=== PATIENT | male | born 1945 | race Caucasian/White ===

== ENCOUNTER → 2017-06-06 | Outpatient (CLI) | payer OTHER ==
[2016-01-12 20:50] VITALS: BP 117/76
[2017-06-06 13:50] LABS: GIARDIA LAMBLIA ANTIGEN NEGATIVE (NEGATIVE)
[2017-06-06 13:51] LABS: CRYPTOSPORIDIUM PARVUM ANTIGEN NEGATIVE (NEGATIVE)
== END ==
LOC: LAB 12:28
PROVIDERS: ATTEND Internal Medicine Gastroenterology
DX: K59.1 Functional diarrhea (principal)
CPT/HCPCS: 82705; 87045; 87205; 87328; 87329; 87336; 87427; 87493; 87899

== ENCOUNTER → 2018-02-17 | Outpatient (CLI) | payer OTHER ==
[2016-01-12 20:50] VITALS: BP 117/76
[~2018-02-17] MED LIST: NS 100 ML IV 100 ML IV ONE
--- NOTE | 2018-02-17 09:58 | CT ---
HISTORY: Follow-up lung nodule from previous scan done 03/19/2016. Study: CT chest with IV contrast Comparison: 10/09/2016 and 03/19/2016 Technique: Multiple axial images of the chest were obtained from the thoracic inlet to the upper abdo men during the administration of IV contrast. In addition to multi planar reconstructions, MIP recons truction was performed in the axial plane. Dose reduction techniques utilized automatic exposure cont rol. Findings: The mediastinum does not demonstrate significant pathological lymphadenopathy. There is no paracardi al effusion observed. The thoracic aorta is normal in its contour without evidence for aneurysmal di latation. Right and left coronary artery calcifications are again seen. The central pulmonary arteria l system does not demonstrate central filling defects to suggest pulmonary emboli. Evaluation of the lung parenchyma reveals no significant interval change in the noncalcified 6 mm nod ule in the lingula. Since this has remained stable for almost 24 months, no further imaging recommend ations are made. No consolidation or new nodule is seen. There is no evidence of pleural fluid.. T he bony thorax is unremarkable in its appearance. The visualized portions of the upper abdomen are g rossly unremarkable. IMPRESSION: Stable 6 mm noncalcified nodule in the lingula. Since this has remained stable for almost 24 months, no further imaging recommendations are made. No new nodule is seen. No evidence of thoracic aortic aneurysm or pulmonary embolus. Right and left coronary artery calcifications. Reported By:
== END ==
LOC: RAD 08:21
PROVIDERS: ATTEND Internal Medicine
DX: R91.1 Solitary pulmonary nodule (principal); R93.9 Diagnostic imaging inconclusive due to excess body fat of patient
CPT/HCPCS: 71260; A4222